=== PATIENT | female | born 1960 | race Caucasian/White ===

== ENCOUNTER 2020-10-04 17:29 | Emergency (ER) | payer OTHER ==
[2020-10-04] MEDS ORDERED: Sodium Chloride 0.9% 1000 ML 1,000 ML IV STA (18:10)
--- NOTE | 2020-10-04 19:26 | ERPHSYRPT ---
- History of Present Illness Time Seen by Provider: 10/04/20 17:33 Source: patient Exam Limitations: no limitations Patient Subjective Stated Complaint: pt here for abnormal labs, she state she just does feel right, and states it feels like heart is fluttering, denies pain. nausea, no vomitng Triage Nursing Assessment: pt alert, resp easy, walked in, face mask in place,no edema Physician History: 60 years old female with history of generalized body ache fatigue and tiredness going on for almost 1 week with associated nausea and multiple episodes of loose watery stool with minimal abdominal discomfort. She was having some fluttering sensation/funny feeling in the chest earlier today and was evaluated at primary care office with negative work-up except for elevated D-dimer and is sent in here for further evaluation. Patient reports she did have COVID-19 few months ago and did not have vaccine. Denies any shortness of breath. No fever or chills reported but feels weak fatigued and tired/dehydrated because of repeated diarrhea. Does not want to be tested for COVID-19. Timing/Duration: intermittent, gradual onset, improved Severity: moderate Modifying Factors: Improves With: nothing Associated Symptoms: nausea, malaise, No shortness of breath, No chest pain Allergies/Adverse Reactions: No Known Drug Allergies Allergy (Unverified 10/04/20 17:54) Home Medications: No Reportable Medications [No Reported Medications] 10/04/20 [History] Hx Influenza Vaccination/Date Given: No Hx Pneumococcal Vaccination/Date Given: No Immunizations Up to Date: Yes Travel Risk - International Travel Have you traveled outside of the country in past 3 weeks: No - Coronavirus Screening Are you exhibiting any of the following symptoms?: No Close contact with a COVID-19 positive Pt in past 14-21 Days: No - Vaccine Status Have you recieved a Covid-19 vaccination: No - Review of Systems Constitutional: Fatigue, Weakness Eyes: No Symptoms Ears, Nose, & Throat: No Symptoms Respiratory: No Symptoms Cardiac: Palpitations Abdominal/Gastrointestinal: Abdominal Pain, Nausea, Diarrhea Genitourinary Symptoms: No Symptoms Musculoskeletal: Myalgias Neurological: No Symptoms Psychological: No Symptoms Endocrine: No Symptoms Hematologic/Lymphatic: No Symptoms Immunological/Allergic: No Symptoms - Past Medical History Pertinent Past Medical History: No - Past Surgical History Past Surgical History: No - Social History Smoking Status: Former smoker Exposure to second hand smoke: No Drug Use: none Patient Lives Alone: No - Female History Hx Last Menstrual Period: post Hx Now: No - Nursing Vital Signs Nursing Vital Signs: Initial Vital Signs Temperature 99.0 F 10/04/20 17:49 Pulse Rate 110 H 10/04/20 17:49 Respiratory Rate 20 10/04/20 17:49 Blood Pressure 156/85 10/04/20 17:49 O2 Sat by Pulse Oximetry 98 10/04/20 17:49 Pain Scale Pain Intensity 0 - Physical Exam General Appearance: no apparent distress, alert, anxiety Eye Exam: PERRL/EOMI, eyes nml inspection Ears, Nose, Throat Exam: normal ENT inspection, pharynx normal Neck Exam: normal inspection, non-tender, supple, full range of motion Respiratory Exam: normal breath sounds, lungs clear Cardiovascular Exam: normal heart sounds, tachycardia Gastrointestinal/Abdomen Exam: soft, normal bowel sounds, tenderness (Minimal generalized without guarding or rebound) Back Exam: normal inspection, normal range of motion Extremity Exam: normal inspection, normal range of motion Neurologic Exam: alert, oriented x 3, cooperative, doctor of nurse anesthesia practice II-XII nml as tested, nml cerebellar function, nml station & gait, sensation nml Skin Exam: normal color SpO2 Interpretation: normal SpO2: 98 O2 Delivery: Room Air - Course EKG Interpreted by Me: RATE ([id number]), Sinus Tach, NORMAL AXIS, NORMAL INTERVALS, Non-specific ST Changes Ordered Tests: Active Orders 24 hr Category Date Time Status EKG-ER Only STAT Care 10/04/20 18:10 Active IV Insertion STAT Care 10/04/20 18:10 Active ABDOMEN AND PELVIS W CONTRAST [CT] Stat Exams 10/04/20 18:10 Taken CHEST WITH CONTRAST [CT] Stat Exams 10/04/20 18:10 Taken Lactic Acid Stat Lab 10/04/20 18:10 Completed Lactic Acid Stat Lab 10/04/20 20:21 Received TROPONIN Q3H Lab 10/04/20 18:31 Completed TROPONIN Q3H Lab 10/04/20 21:15 Ordered TROPONIN Q3H Lab 10/05/20 00:15 Ordered TROPONIN Q3H Lab 10/05/20 03:15 Ordered TROPONIN Q3H Lab 10/05/20 06:15 Ordered Medication Summary Discontinued Medications Generic Name Dose Route Start Last Admin Trade Name Freq PRN Reason Stop Dose Admin Sodium Chloride 1,000 mls @ 999 mls/hr 10/04/20 18:10 10/04/20 20:01 Sodium Chloride 0.9% 1000 Ml IV 10/04/20 19:10 999 mls/hr .Q1H1M STA Administration Sodium Chloride Confirm 10/04/20 19:59 Sodium Chloride 0.9% 1000 Ml Administered 10/04/20 20:00 Dose 1,000 mls @ ud .ROUTE .STK-MED ONE Lab/Rad Data: Laboratory Results 10/04/20 10/04/20 Range/Units 18:31 18:10 Lactic Acid 2.0 (0.4-2.0) Troponin I < 0.012 (0.000-0.034) ng/mL - Progress Progress: improved, re-examined Progress Note: 10/04/20 20:30 60 years old is evaluated for funny feeling in the chest with a positive D- dimer. She also has some element of diarrhea. Troponins done initially at outpatient clinic were negative and I have repeated troponin which is negative as well. CTA chest is negative for pulmonary embolism, pneumonia or any other acute intrathoracic findings. CT abdomen pelvis with contrast is also negative. Patient is given fluid bolus and feeling better. She is offered Covid testing but refused, discussed with Dr. Felix and since patient has 2 - troponins and not feel chest pain, stable for discharge with outpatient follow-up. Discussed signs symptoms of worsening needing return to ER which she seems understanding Discussed with : Baltazar Counseled pt/family regarding: lab results, diagnosis, need for follow-up, rad results - Departure Departure Disposition: Home Clinical Impression: Chest discomfort Diarrhea Qualifiers: Diarrhea type: unspecified type Qualified Code(s): R19.7 - Diarrhea, unspecified Condition: Stable Critical Care Time: No Referrals: FABIO NOEL [Primary Care Provider] - (1-2 days for reevaluation) Instructions: Dehydration, Adult (DC) Additional Instructions: Drink plenty of fluids. Take Tylenol as needed. Follow-up with your primary care physician for reevaluation. Return to ER for worsening diarrhea or have any chest discomfort/shortness of breath etc.
[2020-10-04] MEDS ORDERED: Sodium Chloride 0.9% 1000 ML 1,000 ML ONE (19:59)
[2020-10-04 20:40] VITALS: BP 146/82; PULSE 109; O2SAT 96
--- NOTE | 2020-10-05 08:42 | XRAY ---
Indication: Nausea and diarrhea 1 week. Elevated d-dimer. Multiple contiguous images obtained through the chest using 100 cc Isovue 370 contrast and PE protocol. Comparison: None There is good opacification of the pulmonary arteries to include the lobar and segmental branches. No pulmonary embolus. Heart not enlarged. Aorta is normal in course and caliber. No pathologic mediastinal/hilar lymphadenopathy. Small hiatal hernia. Lungs demonstrate mild scattered fibrosis/scarring bilaterally, minimal bilateral dependent atelectasis, and small right lower lobe calcified granuloma. No suspicious pulmonary mass, infiltrate, or effusion. Bony thorax intact with minimal degenerative changes throughout the spine. CT abdomen/pelvis reported separately. Impression: 1. Negative pulmonary embolus. No acute cardiopulmonary abnormalities. 2. Incidental hiatal hernia, scattered atelectasis/scarring, and old granulomatous disease
--- NOTE | 2020-10-05 08:44 | XRAY ---
Indication: Nausea and diarrhea 1 week. Elevated d-dimer. Multiple contiguous images obtained through the abdomen and pelvis using 100 cc Isovue 370 contrast and PE protocol. Comparison: August 26, 2016 CT chest reported separately. Stomach is distended with food/fluid. Noncontrasted stomach and bowel loops nonobstructed. Normal appendix. Mild feces in the sigmoid/rectum. Urinary bladder demonstrates new diverticuli, largest on the left measuring 1.4 cm. No free fluid/air. Remaining liver, gallbladder, pancreas, spleen, adrenal glands, kidneys, ureters, bladder, and uterus are unremarkable. Again minimal aortic calcifications. No AAA or pathologic retroperitoneal lymphadenopathy. Osseous structures intact. Impression: 1. New urinary bladder diverticuli. 2. Remaining CT abdomen/pelvis with contrast exam is negative.
== END 2020-10-04 20:44 | disposition home or self-care (01) ==
LOC: ED 17:29
DX: R07.89 Other chest pain (principal); R19.7 Diarrhea, unspecified
CPT/HCPCS: 36000; 36415; 71260; 74177; 83605; 84484; 93005; 99284